=== PATIENT | male | born 1955 | race Caucasian/White ===

== ENCOUNTER 2017-02-21 16:35 | Emergency (ER) | payer MEDICAID, OTHER ==
[~2017-02-21] VITALS: Ht 175.3 cm; Wt 87.5 kg
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
[2017-02-21 17:33] LABS: BASOPHILS # (AUTO) 0.1 /CMM (0.0-0.2); BASOPHILS % (AUTO) 1.4 % (0.0-2.0); EOSINOPHILS # (AUTO) 0.1 /CMM (0.0-0.7); EOSINOPHILS % (AUTO) 2.9 % (0.0-6.0); HEMATOCRIT 29 % (39-51); LYMPHOCYTES # (AUTO) 1.6 /CMM (0.8-4.8); LYMPHOCYTES % (AUTO) 33.6 % (20.0-44.0); MEAN CORPUSCULAR HEMOGLOBIN 34 PG (26.0-33.0); MEAN CORPUSCULAR HGB CONC 34 g/dl (31.0-36.0); MEAN CORPUSCULAR VOLUME 100 fL (80-96); MONOCYTES # (AUTO) 0.5 /CMM (0.1-1.30); NEUTROPHILS # (AUTO) 2.5 /CMM (1.8-8.9); NEUTROPHILS % (AUTO) 52.1 % (43.0-81.0); PLATELET COUNT (AUTO) 99 /CMM (150-450); RDW COEFFICIENT OF VARIATION 13.9 (11.5-15.0); RED BLOOD CELL COUNT(AUTO) 2.95 MIL/uL (4.5-6.0); WHITE BLOOD COUNT (AUTO) 4.8 K/uL (4.3-11.0)
[2017-02-21 17:47] LABS: INR 1.14 (0.87-1.13); PROTHROMBIN TIME 11.9 SECS (9.5-12.7)
[2017-02-21 17:48] LABS: ALBUMIN 2.7 g/dL (3.4-5.0); BILIRUBIN,DIRECT 0.7 mg/dL (0.0-0.2); BILIRUBIN,TOTAL 1.1 mg/dL (0.2-1.0); CALCIUM, SERUM 8.3 mg/dL (8.5-10.1); CREATININE 0.7 mg/dL (0.6-1.3); POTASSIUM 3.7 mmol/L (3.5-5.1); TOTAL PROTEIN, SERUM 7.3 g/dL (6.4-8.2)
--- NOTE | 2017-02-21 19:04 | NUR ---
Patient discharged to home in stable condition. Written and verbal after care instructions given. Patient verbalizes understanding of instruction.
[2017-02-21 19:06] VITALS: BP 145/98
== END 2017-02-21 19:07 | disposition home or self-care (01) ==
LOC: ER 16:36
DX: K85.80 Other acute pancreatitis without necrosis or infection (principal); F10.129 Alcohol abuse with intoxication, unspecified; D64.9 Anemia, unspecified; Z59.0 Homelessness
CPT/HCPCS: 36415; 71010; 80048; 80076; 82140; 83690; 85025; 85730; 99285; A4606; Z7610

== ENCOUNTER 2017-04-09 16:03 | Emergency (ER) | payer MEDICAID, OTHER ==
[~2017-04-09] VITALS: Ht 180.3 cm; Wt 93.0 kg
[2017-04-09 16:45] VITALS: BP 106/63
[2017-04-09 17:44] LABS: HEMATOCRIT 24 % (39-51); HEMOGLOBIN 8.6 g/dL (13.5-17.5); MEAN CORPUSCULAR HEMOGLOBIN 35 PG (26.0-33.0); MEAN CORPUSCULAR HGB CONC 36 g/dl (31.0-36.0); MEAN CORPUSCULAR VOLUME 97 fL (80-96); PLATELET COUNT (AUTO) 71 /CMM (150-450); RDW COEFFICIENT OF VARIATION 19.8 (11.5-15.0); RED BLOOD CELL COUNT(AUTO) 2.48 MIL/uL (4.5-6.0); WHITE BLOOD COUNT (AUTO) 5.3 K/uL (4.3-11.0)
[2017-04-09 17:55] LABS: CALCIUM, SERUM 8.1 mg/dL (8.5-10.1); CARBON DIOXIDE 26 mmol/L (21-32); CHLORIDE 102 mmol/L (98-107); CREATININE 0.9 mg/dL (0.6-1.3); GLUCOSE 100 mg/dL (74-106); POTASSIUM 4.5 mmol/L (3.5-5.1); SODIUM SERUM 132 mmol/L (136-145); UREA NITROGEN, BLOOD 6 mg/dL (7-18)
[2017-04-09 18:03] LABS: TROPONIN I < 0.017 ng/mL (0.00-0.056)
[2017-04-09 18:18] LABS: INR 1.39 (0.87-1.13)
[2017-04-09 18:47] LABS: LYMPHOCYTES % (MANUAL) 17 % (16-48); MONOCYTES % (MANUAL) 13 % (0-11.0); NEUTROPHILS % (MANUAL) 70 (42-76)
== END 2017-04-09 19:22 | disposition home or self-care (01) ==
LOC: ER 16:07
DX: T78.49XA Other allergy, initial encounter (principal); F10.10 Alcohol abuse, uncomplicated; R60.0 Localized edema; I10 Essential (primary) hypertension; Z88.0 Allergy status to penicillin; Z59.0 Homelessness; X58.XXXA Exposure to other specified factors, initial encounter
CPT/HCPCS: 36415; 71045; 80048; 84484; 85025; 85730; 93005; 99285; A4606; Z7610

== ENCOUNTER 2017-04-26 16:09 | Emergency (ER) | payer MEDICAID ==
[~2017-04-26] VITALS: Ht 180.3 cm; Wt 93.0 kg
[2017-04-26 16:20] VITALS: BP 126/70
[2017-04-26] MEDS ORDERED: LIDOCAINE HCL/PF 1% 30 ML VIAL TP ONE (17:00)
== END 2017-04-26 18:01 | disposition home or self-care (01) ==
LOC: ER 16:11
DX: Z48.01 Encounter for change or removal of surgical wound dressing (principal); R18.8 Other ascites; K74.69 Other cirrhosis of liver; F10.10 Alcohol abuse, uncomplicated; Z88.0 Allergy status to penicillin; Z59.0 Homelessness
CPT/HCPCS: 99283; A4606; A6402; J3490; Z7610

== ENCOUNTER 2017-04-28 14:11 | Emergency (ER) | payer MEDICAID ==
[~2017-04-28] VITALS: Ht 180.3 cm; Wt 93.0 kg
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
--- NOTE | 2017-04-28 15:05 | NUR ---
SKINAFFIX APPLIED TO PARACENTESIS DRAINAGE SITE. NO LONGER DRAINING. BORDER GAUZE APPLIED ON TOP.
--- NOTE | 2017-04-28 15:19 | NUR ---
Patient discharged to home in stable condition. Written and verbal after care instructions given. Patient verbalizes understanding of instruction.
[2017-04-28 15:20] VITALS: BP 135/84
== END 2017-04-28 15:21 | disposition home or self-care (01) ==
LOC: ER 14:14
DX: Z48.01 Encounter for change or removal of surgical wound dressing (principal); K74.69 Other cirrhosis of liver; I10 Essential (primary) hypertension; F10.10 Alcohol abuse, uncomplicated; Z98.890 Other specified postprocedural states; Z88.0 Allergy status to penicillin; Z59.0 Homelessness
CPT/HCPCS: 99283; A4606; Z7610